=== PATIENT | female | born 1980 | race Caucasian/White ===

== ENCOUNTER → 2016-06-18 | Outpatient (CLI) | payer OTHER ==
--- NOTE | 2016-06-18 15:41 | KCIC ---
PROCEDURE Complete pelvic ultrasound. HISTORY Pelvic pain, IUD. TECHNIQUE Real-time ultrasound imaging of the pelvis using transabdominal and transvaginal window is performed. COMPARISON None. FINDINGS Anteverted uterus. Uterus measures 7.2 x 3.8 x 4.4 cm. No focal uterine abnormality. There are incidental nabothian cysts. There is normal blood flow in the ovaries. The right ovary measures 2.9 x 1.4 x 1.6 cm. The left ovary measures 2.8 x 2 x 1.8 cm. There is an intrauterine device in appropriate position. A hypoechoic fluid collection is seen adjacent to the lower portion of the IUD in the endometrial canal. Fluid measures 15 x 5 x 9 millimeters. The endometrial stripe is not thickened measuring 1 millimeter. No cul-de-sac free fluid is identified. IMPRESSION 1. Small amount of complex fluid in the endometrial canal adjacent to the IUD. 2. Nabothian cysts. 3. Normal blood flow in the ovaries. Electronically signed by: Chris aB MD (Jun 18, 2016 15:39:50)
== END | disposition home or self-care (01) ==
LOC: KCIC US 12:30
PROVIDERS: ATTEND Obstetrics & Gynecology
DX: R10.2 Pelvic and perineal pain (principal); J84.9 Interstitial pulmonary disease, unspecified
CPT/HCPCS: 76830; 76856

== ENCOUNTER 2016-10-08 22:41 | Emergency (ER) | payer OTHER ==
[~2016-10-08] VITALS: Ht 170.2 cm; Wt 108.9 kg
[2016-10-08 22:45] VITALS: BP 171/107
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
== END 2016-10-09 00:18 | disposition home or self-care (01) ==
LOC: ER 22:41
DX: M54.2 Cervicalgia (principal); R42 Dizziness and giddiness; M25.511 Pain in right shoulder; Y08.89XA Assault by other specified means, initial encounter
CPT/HCPCS: 99281